=== PATIENT | female | born 1965 | race Caucasian/White ===

== ENCOUNTER 2023-12-08 21:00 | Inpatient (IN) | payer OTHER, SELFPAY ==
[2023-12-08] VITALS (10 sets, daily range): BP systolic 105–146; BP diastolic 66–97; BMI 28.8; BMI 28.0
[2023-12-08 15:21] LABS: % Basophils 0.5 % (0-2); % Eosinophils 3.5 % (0-6); % Immature Granulocytes 0.3 % (0-0.5); % Lymphocytes 5.9 % (20.5-51.1); % Monocytes 9.7 % (1.7-9.3); % Neutrophils 80.1 % (42.2-75.2); Absolute Eosinophils 0.3 10^3/uL (0-0.7); Absolute Lymphocytes 0.4 10^3/uL (1.2-3.4); Absolute Monocytes 0.7 10^3/uL (0.1-0.6); Absolute Neutrophils 5.9 10^3/uL (1.4-6.5); Hematocrit 41.8 % (37.0-47.0); Hemoglobin 14.5 g/dL (12.0-16.0); Mean Corp Hgb Conc. 34.7 g/dL (33.0-37.0); Mean Corpuscular Hgb 33.3 pg (27.0-31.0); Mean Corpuscular Volume 95.9 fL (81.0-99.0); Mean Platelet Volume 11.8 fL (7.4-10.4); Nucleated Red Blood Cells % 0 %; Platelet Count 110 10^3/uL (130-400); Red Blood Cell Count 4.36 10^6/uL (4.20-5.40); Red Cell Dist. Width 12.3 % (11.5-14.5); White Blood Cell Count 7.4 10^3/uL (4.8-10.8)
[2023-12-08 15:26] LABS: ALT (SGPT) 55 U/L (0-35); AST (SGOT) 48 U/L (14-36); Albumin 4.7 g/dl (3.5-5.0); Alkaline Phosphatase 90 U/L (38-126); Blood Urea Nitrogen 7 mg/dl (7-17); COVID-19 Antigen Negative (Negative); Calcium 9.6 mg/dl (8.4-10.2); Carbon Dioxide 24 mmol/L (22-30); Chloride 106 mmol/L (98-107); Glucose 109 mg/dl (70-99); Potassium 4.1 mmol/L (3.5-5.1); Sodium 138 mmol/L (135-145); Total Bilirubin 0.7 mg/dl (0.2-1.3); eGFR > 60.00
--- NOTE | 2023-12-08 15:34 | ED.GENMED ---
History of Present Illness
General
Chief Complaint: Breathing Problem
Time Seen by Provider: 12/08/23 15:26
Travel History
Have you had any contact with someone who has COVID-19?: No
Do you have any symptoms of coronavirus? Fever > 100 degrees, chills, cough, shortness of breath, sore throat, loss of taste or smell, muscle aches, or headache?: Yes
Symptoms:: SOB, cough
History of Present Illness
History of Present Illness:
58-year-old female with history of asthma presents to the emergency department for evaluation of shortness of breath for the past 3 days. Notes that she awoke with nasal congestion and dry cough, developed progressively worsening chest tightness
and shortness of breath over the past several days. Her nebulizers and MDI are not helping. No ill contacts at home. Denies fevers or chills.
Past History
Past History
ED Past Medical History: Asthma
ED Past Surgical History: None
Social History
Tobacco: Non-smoker
Alcohol: Occasional
Drug: None
Personal:
Living: with family
Employment: Employed
Family History
Family History: Other (Noncontributory)
Review of Systems
Review of Systems
Allergies reviewed?: Yes
All Other Systems: ROS reviewed and negative except as documented in HPI and ROS
Phy Exam
Physical Exam
Physical Exam:
GEN: Well appearing, NAD, WDWN
Eyes: PERRLA, EOMs intact, no scleral icterus
HENT: NCAT, oral mucosa moist
Lungs: Tachypneic with accessory muscle use, global expiratory wheezing and prolonged expiratory phase, good air exchange
Cardiac: Tachycardic, regular, no murmurs
Neuro: AO x 3
MSK: No gross deformity or ecchymosis. No edema. No digital clubbing
Skin: No rashes, petechiae. Normal color, no pallor or jaundice.
Psych: Calm, cooperative, proper hygiene
Scores
Heart Failure Risk
Heart Failure Risk Score: Not Applicable
Course
Orders/Labs/Results
Orders:
Orders
12/08/23 14:58
Electrocardiogram (*1) Urgent
Reason for Study: Other
Other Reason for Exam: Respiratory Distress
EKG- Treatment ONCE
12/08/23 15:04
COVID-19 Antigen Urgent
Source: Nasal Swab
Complete Blood Count/With Diff Urgent
Comprehensive Metabolic Panel Urgent
Hepatitis C Antibody Urgent
Comment: ADD ON
Troponin I Urgent
Influenza A+B Rapid Molecular Urgent
CARI Source: Nasal Swab
Specimen Description:
12/08/23 15:34
Albuterol Sulfate [Ventolin Nebules] 10 mg INH R NOW STA
Ipratropium Nebs [Atrovent Nebules] 1 mg INH R NOW STA
Magnesium Sulfate 2 Gram/50 ml [Magnesium Sulfate] 2 gram in 50 ml IV NOW
MethylPREDNISolone PF [Solu-Medrol Pf] 60 mg IV NOW STA
12/08/23 15:36
CR Chest Portable - 1 View Urgent
Comment:
Reason For Exam: SOB
Reason Study Needs to be Portable: Other
12/08/23 17:10
CT Chest Pe Study Urgent
Comment:
Reason For Exam: SOB/hypoxia
12/08/23 20:08
Ipratropium/Albuterol Sulfate [Duoneb] 3 ml INH R NOW STA
12/08/23 20:22
Admit/Transfer Patient As Directed
Co-Sign Provider:
Level of Care: Inpatient admission
Assign to:: Telemetry
Physician / Group: [email or web address]
Diagnosis: acute asthma flare - moderatly severe , hypoxic RI
Reason for Telemetry: Other
Other Reason for Telemetry: hypoxic RI
Date to Stop Telemetry: 12/10/23
Time to Stop Telemetry: 11:00
Reason for Hospitalization: acute asthma flare - moderatly severe , hypoxic RI
Expected length of stay greater than two midnights?: Yes
ELOS- Estimated Length of Stay in days: 3
I certify the patient meets the requirements for IP care: Yes
12/08/23 20:24
Code Status As Directed
Resuscitation Status: Full Code
12/08/23 21:18
Guaifenesin [Mucinex] 600 mg PO BIDPRN PRN
Ipratropium/Albuterol Sulfate [Duoneb] 3 ml INH R Q4HPRN PRN
12/08/23 21:18
Activity As Directed
Activity Level: As Tolerated
Intake/ Output As Directed
Frequency: Per unit guidelines
Vital Signs As Directed
Frequency: Per unit guidelines
Copd Education [RESP] Routine
O2 Therapy [RESP] Routine
Titrate/Wean O2 to maintain O2 sat greater than (%): 94
Special Instructions: adjust, if necessary, to avoid hyperoxia in CO2 retainers.
Use High Flow O2 if necessary
DX Deep Vein Thrombosis Video Routine
12/08/23 22:00
Dexamethasone Sod Phosphate [Decadron] 4 mg IV Q6H
12/09/23 Breakfast
Regular
At Your Request: Full Participation
Basic Metabolic Panel IN AM
Complete Blood Count/With Diff IN AM
12/09/23 08:00
Ipratropium/Albuterol Sulfate [Duoneb] 3 ml INH R QID
12/09/23 18:00
Enoxaparin Sodium [Lovenox] 40 mg SC QPM
12/10/23 11:00
DC Protocol for Telemetry ONCE
Abnormal Lab Results
12/08/23
15:04
MCH 33.3 H pg
(27.0-31.0)
Plt Count 110 L 10^3/uL
(130-400)
MPV 11.8 H fL
(7.4-10.4)
Absolute Lymphs (auto) 0.4 L 10^3/uL
(1.2-3.4)
Absolute Monos (auto) 0.7 H 10^3/uL
(0.1-0.6)
Neutrophils % 80.1 H %
(42.2-75.2)
Lymphocytes % 5.9 L %
(20.5-51.1)
Monocytes % 9.7 H %
(1.7-9.3)
Glucose 109 H mg/dl
(70-99)
AST 48 H U/L
(14-36)
ALT 55 H U/L
(0-35)
12/08/23 15:04
12/08/23 15:04
Vital Signs
Initial and Last Documented VS:
Initial Vital Signs
Temp Pulse Resp BP Pulse Ox
99.7 F 108 22 146/92 91
12/08/23 14:54 12/08/23 14:54 12/08/23 14:54 12/08/23 14:54 12/08/23 14:54
Last Documented Vital Signs
Temp Pulse Resp BP Pulse Ox
97.8 F 101 22 143/88 94
12/08/23 21:29 12/08/23 21:29 12/08/23 21:29 12/08/23 21:29 12/08/23 21:29
MDM/Problems Addressed
MDM/Problems Addressed:
58-year-old female presents with shortness of breath and asthma exacerbation symptoms. She is markedly hypoxic on room air which seems to be incongruent with her degree of wheezing on exam. She did improve symptomatically to some degree after
hour-long neb treatment however required increasing oxygen demand up to 10 L mid flow. Given that her lung sounds are not prominently abnormal she was sent for a PE study which was fortunately unremarkable for pulmonary embolism. IV steroids and
IV magnesium were also given. Will be admitted to the hospitalist service for further management
*Critical Care Note
Total Time (30-74mins, 75-104mins- exclusive of procedures): 45 minutes
comment:
Critical care time: 45 minutes
Critical care time was exclusive of: Separately billable procedures, treating other patients, and teaching time
Critical care was necessary to treat or prevent imminent or life-threatening deterioration of the following conditions: Respiratory failure with hypoxia
Critical care time spent personally by me on the following activities:
[x] Review of old charts
[x] Obtaining history from patient or surrogate
[x] Ordering and review of the laboratory studies
[x] Ordering and review of radiographic studies
[x] Ordering and performing treatments and interventions
[x] Patient patient's response to treatment
[x] Development of treatment plan with patient or surrogate
ED Attending Note
-
Portions of this chart may have been created with voice recognition software.� Occasional wrong word or��sound alike� substitutions may have occurred due to the inherent limitations of voice recognition software.
Discharge Plan
Departure
Patient Disposition: Admit
Date of Disposition: 12/08/23
Time of Disposition: 20:08
Admit to: Med/Surg
Presentation/result/management discussed w/ accepting MD/DO: Hospitalist
Discharge Problem:
Acute asthma exacerbation
Interventions
Interventions:
*Risk Screen - Suicide Last Done: 12/08/23 21:25
*General Assessment Last Done: 12/08/23 14:54
*Neglect/Abuse Screening Last Done: 12/08/23 14:54
ED- Fall Risk Assessment Last Done: 12/08/23 15:24
*Nursing Disposition Last Done: 12/08/23 21:11
ED- Cardiac Assessment Last Done: 12/08/23 15:24
ED- Pulmonary Assessment Last Done: 12/08/23 15:24
Discharge Date and Time
Discharge Date/Time: 12/08/23 21:11
[2023-12-08 15:38] LABS: Troponin I < 0.012 ng/ml
[2023-12-08] MEDS: VENTOLIN NEBULES 10 MG INH (15:42)
[2023-12-08] MEDS: ATROVENT NEBULES 1 MG INH (15:42)
[2023-12-08] MEDS: MAGNESIUM SULFATE 50 IV (15:48)
[2023-12-08] MEDS: SOLU-MEDROL PF 60 MG IV (15:49)
[2023-12-08] MEDS: DUONEB 3 ML INH ×2 (20:12→22:27)
--- NOTE | 2023-12-08 20:19 | HPS.HSE ---
Family Physician
-
Family Physician: Monica Castañeda
Chief Complaint
-
SoB
History of Present Illness
58F HX asthma evaluation for shortness of breath for the past 3 days.
She awoke with nasal congestion and dry cough, developed progressively worsening chest tightness and shortness of breath over the past several days. Her nebulizers and MDI are not helping. No ill contacts at home.
Denies fevers or chills.
Medical History
Past Medical History
Past Medical History: Reports Asthma
Past Surgical History: Reports None
Social History
Tobacco: Non-smoker
Alcohol: Occasional
Personal:
Living: With Family
Family History
Family History: Not pertinent
Allergies / Home Medications
Allergies reflects when Allergies were last updated in [facility].
Home Medications with original date entered in [facility]
Allergy/Medication List:
Allergies
Allergy/AdvReac Type Severity Reaction Status Date / Time
Sulfa (Sulfonamide Allergy Unknown Rash Verified 12/08/23 14:54
Antibiotics)
Home Medications
albuterol sulfate 1.25 mg/3 mL solution for nebulization 1.25 mg inhalation R Q4HPRN PRN sob/wheezing 10/23/22
albuterol sulfate 90 mcg/actuation aerosol inhaler 2 puff inhalation R Q4HPRN PRN sob/wheezing 10/23/22
guaifenesin 600 mg tablet, extended release 12 hr (Mucinex) 600 mg PO BIDPRN PRN cough 12/08/23
Review of Systems
-
Constitutional: Reports No Symptoms
EENT: Reports No Symptoms
Respiratory: Reports See HPI
Cardiac: Reports No Symptoms
Abdomen/GI: Reports No Symptoms
: Reports No Symptoms
Musculoskeletal: Reports No Symptoms
Skin: Reports No Symptoms
Neurological: Reports No Symptoms
Endocrine: Reports No Symptoms
Hematologic/Lymphatic: Reports No Symptoms
Psych: Reports No Symptoms
Physical Exam
Vital Signs
Vital Signs
Temp Pulse Resp BP Pulse Ox
99.7 F 103 20 108/97 95
12/08/23 14:54 12/08/23 20:00 12/08/23 20:00 12/08/23 20:00 12/08/23 20:00
Physical Exam
General: Other (see below )
Laboratory Results
-
12/08/23 15:04
12/08/23 15:04
Laboratory Results
Total Bilirubin 0.7 mg/dl (0.2-1.3) 12/08/23 15:04
AST 48 U/L (14-36) H 12/08/23 15:04
ALT 55 U/L (0-35) H 12/08/23 15:04
Alkaline Phosphatase 90 U/L (38-126) 12/08/23 15:04
Troponin I < 0.012 ng/ml 12/08/23 15:04
Data Reviewed
-
Diagnostic Radiology: Report Reviewed by me
CT Scan: Report Reviewed by me
Medical Tests (Nuc Med, Echo, EKG etc): Report Reviewed by me
Lab Data: Labs Reviewed by me
Old Records: Reviewed
Impression/Plan
-
Reviewed VS: Afebrile, tachypneic mid 20s, POx 87 on RA [address] 115--> 95 , Realtive hypotension
PE
Gen: not toxic looking, NAD
HEENT: anicteric , no pallor
Neck: supple
Lungs: Tachypneic with accessory muscle use, b/l diffise expiratory wheezing and prolonged expiratory phase
symmetric AE
Cor: ST, RRR S1 S2
Abdomen: benign exam
MOTOR EXPERT: AAO3 NFND
MS: no edema
Psych: AAO3
Data
nl CBC
nl Eosinophils
nl CMP
NEG TPNI
NEG Covid NEG Flu
EKG : ST
CXR: No radiographic evidence for acute cardiopulmonary disease
CTC Chest
- no CT angiographic evidence for pulmonary embolism.
- Diffuse bronchial wall thickening, which is greatest within the lower lobes bilaterally, and could be related to reactive airway disease and/or bronchitis.
- Band of postobstructive atelectasis within the anterior aspect of the left lower lobe of the lung.
- Ground glass opacity within the left upper lobe, which is likely groundglass pneumonitis.
- Consider follow-up radiography and/or CT to assess for interval improvement in these findings.
- Fatty infiltration of the liver.
Last hospitalist admission: 10/23/22- 10/24/22
Primary diagnoses:
Hemoptysis
Right upper lobe mass with mediastinal lymphadenopathy
Secondary diagnoses:
Asthma
Atrophic Kidney
ASSESSMENT & PLAN
Acute asthma flare with bronchitic element
Asso. acute hypoxic RI being supported on MFO2
Suspect viral
NEG CTA for PE
- IV Decadron 4mg q6h
- DuoNebs qid and PRN
- Observing off ABx
- cont. MFO2 support
- Pul consult
DVT Px: LMWH
Code: Full code
IP TLM
[2023-12-08] MEDS: DECADRON 4 MG IV (22:03)
[2023-12-08 22:53] LABS: Hepatitis C Antibody Negative (Negative)
[2023-12-09] VITALS (7 sets, daily range): BP systolic 113–135; BP diastolic 70–87
[2023-12-09] MEDS: DUONEB 3 ML INH ×3 (02:58→11:33)
[2023-12-09] MEDS: DECADRON 4 MG IV ×3 (03:28→20:06)
[2023-12-09] MEDS: TYLENOL 650 MG PO (03:28)
[2023-12-09 08:16] LABS: % Basophils 0.3 % (0-2); % Immature Granulocytes 0.5 % (0-0.5); % Lymphocytes 4.6 % (20.5-51.1); % Monocytes 5.1 % (1.7-9.3); % Neutrophils 89.5 % (42.2-75.2); Absolute Lymphocytes 0.3 10^3/uL (1.2-3.4); Absolute Monocytes 0.4 10^3/uL (0.1-0.6); Absolute Neutrophils 6.6 10^3/uL (1.4-6.5); Hemoglobin 13.8 g/dL (12.0-16.0); Mean Corp Hgb Conc. 34.5 g/dL (33.0-37.0); Mean Corpuscular Volume 95.7 fL (81.0-99.0); Nucleated Red Blood Cells % 0 %; Platelet Count 108 10^3/uL (130-400); Red Blood Cell Count 4.18 10^6/uL (4.20-5.40); Red Cell Dist. Width 12.3 % (11.5-14.5); White Blood Cell Count 7.4 10^3/uL (4.8-10.8)
[2023-12-09 08:50] LABS: Blood Urea Nitrogen 15 mg/dl (7-17); Calcium 9.5 mg/dl (8.4-10.2); Carbon Dioxide 21 mmol/L (22-30); Chloride 108 mmol/L (98-107); Estimated Creatinine Clearance 82 ml/min; Glucose 137 mg/dl (70-99); Potassium 4.3 mmol/L (3.5-5.1); Sodium 139 mmol/L (135-145); eGFR > 60.00
--- NOTE | 2023-12-09 09:20 | W.PN.HOSP.TC ---
Today's Communication/Plan
-
Continue current care
Assessment / Plan
Assessment / Plan
Gen-AAOx3, NAD
HEENT-NC, AT, anicteric, clear oral mm
Neck-supple
CV-reg, no M, +S1/S2
Lungs-bilateral expiratory wheezing
Abd-soft, NT, ND
Ext-no edema
Musculoskeletal-no cyanosis, clubbing
Skin-warm and dry
Neuro-grossly non-focal
Psych-calm, cooperative
Acute hypoxic respiratory failure -due to acute asthma exacerbation, acute bronchitis. Currently on 8 L nasal cannula oxygen, wean down as able.
Admission CT chest negative for pulmonary embolism. Does show findings of diffuse bronchial wall thickening. Postobstructive atelectasis. Groundglass opacity in the left upper lobe. Admission chest x-ray clear.
Acute asthma exacerbation -background moderate persistent asthma. Continue inhalers, steroids. Add Mucinex, Acapella. Pulmonary consulted. She is followed by Dr. Sherwood. Absolute eosinophil count 0.3.
Thrombocytopenia -unknown acuity or etiology. Monitor for now.
Elevated transaminases -unclear etiology. Monitor for now.
Full code
Anticipated Discharge: > 48 hours
Subjective/Interval History
-
Date of Service: December 09, 2023
Patient seen and examined. Feels somewhat better compared to yesterday but still with coughing and wheezing. Orthopnea.
Objective Data
-
Labs:
Laboratory Results
12/09/23
07:32
WBC 7.4
Hgb 13.8
Hct 40.0
Plt Count 108 L
Sodium 139
Potassium 4.3
Chloride 108 H
Carbon Dioxide 21 L
BUN 15
Creatinine 0.7
Glucose 137 H
Calcium 9.5
Vital Signs:
Vital Signs
Temp Pulse Resp BP Pulse Ox
97.5 F 92 18 121/81 93
12/09/23 07:00 12/09/23 09:12 12/09/23 09:12 12/09/23 07:00 12/09/23 09:12
I&O
12/08/23 12/09/23 12/10/23
06:59 06:59 06:59
Intake Total 240 / 240
Balance 240 / 240
Review of Systems
-
History Source: Patient
All other systems: Reviewed and negative
[2023-12-09] MEDS: MUCINEX 600 MG PO ×2 (11:00→20:06)
--- NOTE | 2023-12-09 12:36 | CON.PUL ---
Consultation
Consultation Request
Date/Time Consultation Requested: 12-09-23
Date/Time Consultation Performed: 12-09-23
Requesting Provider: Hospitalist
Performing Provider: Dr Smalls
Reason for Consultation: dyspnea
Medical History
-
Chief Complaint: dyspnea
History of Present Illness:
Ms Alfreda Lopez is a 58/W adm 12-08 with 4 d h/p sore throat, followed by worsening productive cough (green sputum), dyspnea and wheezing.
Denies sick contacts. Uptodate on vaccinations except COVID for about 1 y
H/o asthma on breztri and alb HFA prn with good compliance, used to follow [facility] after Oct 2022 adm for RUL nodule and hemoptysis
Nonsmoker but h/o 2nd hand smoking
Past Medical History
Past Medical History: Other (see A&P for PMH/PSH)
Social History
Tobacco: Other (h/o 2nd hand smoking through mom and first )
Alcohol: Occasional
Drug: None
Personal:
Living: With Family
Employment: Employed
Family History
Family History: Cancer (M: dx lung cancer at age 72, heavy smoker, age 78. D: with kidney and bladder cancer)
Allergies / Home Medications
Allergies
Allergy/AdvReac Type Severity Reaction Status Date / Time
Sulfa (Sulfonamide Allergy Unknown Rash Verified 12/08/23 14:54
Antibiotics)
montelukast [From Singulair] Allergy Itching Verified 12/08/23 21:24
Home Medications
Medication Instructions Recorded Confirmed Last Taken Type
albuterol sulfate 1.25 mg/3 mL 1.25 mg inhalation R Q4HPRN PRN 10/23/22 12/08/23 12/08/23 History
solution for nebulization sob/wheezing
albuterol sulfate 90 mcg/actuation 2 puff inhalation R Q4HPRN PRN 10/23/22 12/08/23 12/08/23 History
aerosol inhaler sob/wheezing
budesonide 160 mcg-glycopyr 9 2 inh inhalation BID 12/08/23 12/08/23 Unknown History
mcg-formot 4.8 mcg/actuation HFA Lung/Breathing Issues
inhaler (Breztri Aerosphere)
guaifenesin 600 mg tablet, 600 mg PO BIDPRN PRN cough 12/08/23 12/08/23 12/08/23 History
extended release 12 hr (Mucinex)
Review of Systems
-
History Source: Patient
All other systems: Negative unless noted
Respiratory: Cough and Trouble Breathing
Musculoskeletal: Other (muscle aches)
Neuro: Weakness
Vitals / Labs / Diagnostic Testing
Vital Signs
Temp Pulse Resp BP Pulse Ox
97.9 F 101 22 124/75 96
12/09/23 11:21 12/09/23 11:36 12/09/23 11:36 12/09/23 11:21 12/09/23 11:36
Lab Data
12/09/23 07:32
12/09/23 07:32
Microbiology
12/08/23 15:04 Nasal Swab Influenza Types A & B (JEFFREY) - Final
Negative for Influenza A & B, NAAT
Negative results must be combined with clinical observations
and patient history.
Nucleic Acid Amplification test (NAAT)performed on the
[employer] platform.
Diagnostic Testing:
Physical Exam
-
HEENT: Normocephalic and Moist Mucous Membranes
Cardiovascular: Regular Rhythm, Murmur (n), Peripheral Edema (n), Calf Tenderness (n) and JVD
Respiratory: Wheeze and Rhonchi
GI: Non Distended and Non Tender
Neurology: Awake, AO x 3 and No Motor Deficits
Skin: Dry
General: Respiratory Distress (mild)
Assessment
-
Assessment:
Ms Alfreda Lopez is a 58/W adm 12-08 with 4 d h/p sore throat, followed by worsening productive cough (green sputum), dyspnea and wheezing. Denies sick contacts. H/o asthma on breztri and alb HFA prn with good compliance, used to follow [facility] after
Oct 2022 adm for RUL nodule and hemoptysis.
Impression:
Acute hypoxemia, productive cough (green sputum), wheezing
New [place] GG infiltrates and postobstructive linear atelectasis at anterior aspect of LLL, very small GG at posterior LLL
Asthma exacerbation
Resolved RUL nodule (received atbs and CS), persistent MLAD 4R/L, 7 and 6
Mild thrombocytopenia
Trop negative
COVID/flu negative
Mild ankle edema
Conditions [employer]:
Adm DH 10-23 to :
Hemoptysis: new onset 10-23, up to 10 events of mild hemoptysis until 10 am 10-24
RUL posterior segment 2.3 x 1.4 x 1.9 cm oval-shaped solid pulmonary nodule, located along the anterior margin of the right major fissure, 61 HU in attenuation, with moderate amount of surrounding GGO
Mediastinal LAD: 4R, 4L, 7, 6
Strongly rec to follow at [facility] for robotic bronchoscopy for biopsy of RUL mass
CAP/asthma exacerbation Aug 2022, CXR 11-29 at [facility] states negative results
Given 5 d course of doxycycline and medrol dose pack
Asthma, on albuterol, advair
Mild intermittent
Dx age 29, [facility]
Followed at [facility] after Oct 2022 adm until February 2023, since then no show up
Atrophic L kidney
R upper chest 'fullness' for 1 y [employer], chest US by PCP was negative
L lumpectomy x2: first one negative, 2nd one 10 y ago, suspicious (FNA) led to lumpectomy but did not need further surgery or other treatments, negative mammogram end 2021
Cholecystectomy
Hepatic steatosis
Cervical cancer s/p local resection at age 29s
Hysterectomy 2014 for fibroids
LLNS
H/o 2nd hand smoking (mom and first )
Colonoscopy negative 2021
FH cancer: M, dx lung cancer at age 72, heavy smoker, age 78. D, with kidney and bladder cancer
Plan:
Continue O2 protocol
O2 8L, now down to 6L, POC POx 97%
Chest CTA with no PE but new multifocal [place] GG infiltrates and long linear atelectasis at anterior LLL, very small GG at posterior LLL
Acute onset of symptoms with dyspnea, productive cough and wheezing
Check sputum cx, blood cxs, UAg for Leg/Strep, PCT, MRSA screen
Initiate empiric atbs, e.g zosyn
Intermittent CXR, at some point outpatient chest CT
Noted persistent mediastinal LAD which needs close follow up
Patient reminded to resume follow up at [facility], lost follow up since after February [address] Garcia
Continue systemic CS IV: dexam 4 mg IV q8 to continue, equivalent to pred 80 mg qd
Continue symbicort (return [facility] upon d[facility]c, [facility] then will [facility])
Continue Dns qid/prn
VEST, HS, acapella
Continue guaifenesin
Mild ankle edema
Check BNP, TTE, HELADIO doppler
D/w Mrs Lopez, all questions answered
Diagnostic tests:
CXR 12-08-23: c/w 11-13 and 10-23-22: interval resolution of RUL nodule
Chest CTA 12-08-23 c/w Oct 2022: resolved RUL nodule, persistent MLAD. New GG infiltrates at [place]. New linear atelectasis at anterior LLL
--- NOTE | 2023-12-09 14:23 | CM ---
customer acquisition manager reviewed patient's chart and met with patient and spouse at bedside. Patient reports she is independent with adl's and ambulation, patient drives, patient has a nebulizer in home patient has a prescription plan and uses [facility] pharmacy.
PCP: Monica Castañeda
Plan; Home no needs when stable.
[2023-12-09 15:34] LABS: NT-proBNP 103 pg/ml
[2023-12-09 15:40] LABS: Procalcitonin < 0.05 ng/ml (0.0-0.25)
[2023-12-09] MEDS: ZOSYN 50 IV ×2 (15:52→21:15)
[2023-12-09] MEDS: VENTOLIN NEBULES 2.5 MG INH (19:38)
[2023-12-09] MEDS: SODIUM CHLORIDE 3% FOR INHALATION 1 VIAL INH (19:39)
[2023-12-10 03:15] VITALS: BP 109/71
[2023-12-10] MEDS: DECADRON 4 MG IV ×3 (04:37→19:23)
[2023-12-10] MEDS: ZOSYN 50 IV (04:38)
--- NOTE | 2023-12-10 06:11 | DOWNTIME ---
There was a [employer] In[employer] Downtime on 12/10/2023 from 0111 to 12/10/2023 at 0405. Downtime documentation of patient's care, including medication administrations, has been reconciled in the electronic record per guidelines. Refer to the
patient's paper chart under the miscellaneous tab to see printed paper medication records and downtime forms.
[2023-12-10 07:00] VITALS: BP 125/83
[2023-12-10] MEDS: MUCINEX 600 MG PO ×2 (07:19→19:27)
[2023-12-10] MEDS: VENTOLIN NEBULES 2.5 MG INH ×3 (07:48→19:38)
[2023-12-10] MEDS: SODIUM CHLORIDE 3% FOR INHALATION 1 VIAL INH ×3 (07:49→19:38)
--- NOTE | 2023-12-10 11:32 | W.PN.HOSP.TC ---
Today's Communication/Plan
-
Continue current care
Assessment / Plan
Assessment / Plan
Gen-AAOx3, NAD
HEENT-NC, AT, anicteric, clear oral mm
Neck-supple
CV-reg, no M, +S1/S2
Lungs-bilateral expiratory wheezing
Abd-soft, NT, ND
Ext-no edema
Musculoskeletal-no cyanosis, clubbing
Skin-warm and dry
Neuro-grossly non-focal
Psych-calm, cooperative
Acute hypoxic respiratory failure -due to acute asthma exacerbation, acute bronchitis. Oxygenation improving, down to 3 L nasal cannula.
Admission CT chest negative for pulmonary embolism. Does show findings of diffuse bronchial wall thickening. Postobstructive atelectasis. Groundglass opacity in the left upper lobe. Admission chest x-ray clear.
Acute asthma exacerbation -background moderate persistent asthma. Slowly improving. Continue steroids, nebs, Acapella, Mucinex. Pulmonary following.
No evidence of congestive heart failure. BNP normal. Pulmonary order echocardiogram, report pending. Lower extremity Doppler ultrasound negative.
Thrombocytopenia -unknown acuity or etiology. Monitor for now.
Elevated transaminases -unclear etiology. Monitor for now.
Full code
Anticipated Discharge: Within 24 hours
Subjective/Interval History
-
Date of Service: December 10, 2023
Patient seen and examined. States she is starting to feel better. Still with cough.
Objective Data
-
Vital Signs:
Vital Signs
Temp Pulse Resp BP Pulse Ox
98.0 F 94 18 125/83 96
12/10/23 07:00 12/10/23 07:52 12/10/23 07:52 12/10/23 07:00 12/10/23 07:52
I&O
12/09/23 12/10/23 12/11/23
06:59 06:59 06:59
Intake Total 240 / 240 900 / 900
Balance 240 / 240 /
Review of Systems
-
History Source: Patient
All other systems: Reviewed and negative
--- NOTE | 2023-12-10 14:10 | CM ---
Home no needs when stable.
Plan; Home no needs when stable.
[2023-12-10 15:00] VITALS: BP 133/74
--- NOTE | 2023-12-10 16:33 | W.PN.PUL3 ---
Today's Communication / Plan
-
O2
BD
CS
Assessment
-
Assessment:
Ms Alfreda Lopez is a 58/W adm 12-08 with 4 d h/p sore throat, followed by worsening productive cough (green sputum), dyspnea and wheezing. Denies sick contacts. H/o asthma on breztri and alb HFA prn with good compliance, used to follow [facility] after
Oct 2022 adm for RUL nodule and hemoptysis.
Impression:
Acute hypoxemia, productive cough (green sputum), wheezing
New [place] GG infiltrates and postobstructive linear atelectasis at anterior aspect of LLL, very small GG at posterior LLL
PCT negative
Asthma exacerbation
Resolved RUL nodule (received atbs and CS), persistent MLAD 4R/L, 7 and 6
Mild thrombocytopenia
Trop negative
COVID/flu negative
Mild ankle edema
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
Adm DH 10-23 to 23:
Hemoptysis: new onset 10-23, up to 10 events of mild hemoptysis until 10 am 10-24
RUL posterior segment 2.3 x 1.4 x 1.9 cm oval-shaped solid pulmonary nodule, located along the anterior margin of the right major fissure, 61 HU in attenuation, with moderate amount of surrounding GGO
Mediastinal LAD: 4R, 4L, 7, 6
Strongly rec to follow at [facility] for robotic bronchoscopy for biopsy of RUL mass
CAP/asthma exacerbation Aug 2022, CXR -29 at [facility] states negative results
Given 5 d course of doxycycline and medrol dose pack
Asthma, on albuterol, advair
Mild intermittent
Dx age 29, [facility]
Followed at [facility] after Oct 2022 adm until February 2023, since then no show up
Atrophic L kidney
R upper chest 'fullness' for 1 y REFRIGERATION INSULATOR, chest US by PCP was negative
L lumpectomy x2: first one negative, 2nd one 10 y ago, suspicious (FNA) led to lumpectomy but did not need further surgery or other treatments, negative mammogram end 2021
Cholecystectomy
Hepatic steatosis
Cervical cancer s/p local resection at age 29s
Hysterectomy 2014 for fibroids
LLNS
H/o 2nd hand smoking (mom and first )
Colonoscopy negative 2021
FH cancer: M, dx lung cancer at age 71, heavy smoker, age 77. D, with kidney and bladder cancer
Plan:
Continue O2 protocol
O2 8L, down to 6L and now to 3L, POx 96%
Chest CTA with no PE but new multifocal [place] GG infiltrates and long linear atelectasis at anterior LLL, very small GG at posterior LLL
Acute onset of symptoms with dyspnea, productive cough and wheezing
Check sputum cx ordered but not yet collected
Blood cxs so far negative
UAg for Leg/Strep not collected
PCT negative, MRSA screen negative
Initiated empiric atbs, e.g zosyn, now discontinued
Intermittent CXR, at some point outpatient chest CT
Noted persistent mediastinal LAD which needs close follow up
Patient reminded to resume follow up at [facility], lost follow up since after February [address] Garcia
Continue systemic CS IV: dexam 4 mg IV q8 to continue for now, equivalent to pred 80 mg qd
Continue symbicort (return to [facility] upon d/c, per RT family will bring banner today, then will use it instead)
Continue Dns qid/prn
VEST, HS, acapella
Continue guaifenesin
Mild ankle edema
BNP stephanie, HELADIO doppler negative
D/w Mrs Lopez, all questions answered
Diagnostic tests:
CXR 12-08-23: c/w 11-13 and 10-23-22: interval resolution of RUL nodule
Chest CTA 12-08-23 c/w Oct 2022: resolved RUL nodule, persistent MLAD. New GG infiltrates at D[place]. New linear atelectasis at anterior LLL
Subjective Data
-
Date of Service:
Date of Service: December 10, 2023
Chief Complaint: Pulmonary Follow Up
Subjective:
No major events reported
Remains afebrile and hemodyn stable
Feels resp biggs improved
Review of Systems
General: Fever (n), Sweats (n), Chills (n) and Satisfactory Appetite
HEENT: Epistaxis (n) and Dysphagia
Cardiopulmonary: Dyspnea, Cough, Wheezing and Chest Pain (n)
GI: Abdominal Pain (n), Nausea and Vomiting (n)
Neuro: Weakness
Objective Data
Data Reviewed
Vital Signs / I&O / Oxygen:
Vital Signs
Temp Pulse Resp BP Pulse Ox
98.2 F 77 18 133/74 94
12/10/23 15:00 12/10/23 15:00 12/10/23 15:00 12/10/23 15:00 12/10/23 15:00
Intake and Output
12/09/23 12/10/23 12/11/23
06:59 06:59 06:59
Intake Total 240 / 240 900 / 900
Balance 240 / 240 900 / 900
SaO2 94
Nasal Cannula flow liters per 3
minute
Physical Exam
General: Comfortable
HEENT: Normocephalic and Moist Mucous Membranes
Cardiovascular: Regular Rhythm, Murmur, Peripheral Edema (n) and Calf Tenderness
Respiratory: Wheeze, Rhonchi, Accessory Resp Muscle Use (trace) and Stridor (n)
GI: Soft, Non Distended and Non Tender
Neurology: Awake and AO x 3
Skin: Dry
Labs/Micro/Reports
Lab Data
12/09/23 07:32
12/09/23 07:32
Microbiology
12/09/23 14:56 Blood/Venous Blood Culture - Preliminary
No Growth in 24 hours- Final report to follow
12/09/23 15:59 Nose Nasal Screen MRSA (PCR) - Final
MRSA not detected - performed by PCR methodology.
12/08/23 15:04 Nasal Swab Influenza Types A & B (JEFFREY) - Final
Negative for Influenza A & B, NAAT
Negative results must be combined with clinical observations
and patient history.
Nucleic Acid Amplification test (NAAT)performed on the
[employer] platform.
[2023-12-10 23:00] VITALS: BP 121/71
[2023-12-11] MEDS: DECADRON 4 MG IV ×2 (05:00→11:32)
[2023-12-11 07:00] VITALS: BP 131/87
[2023-12-11] MEDS: SODIUM CHLORIDE 3% FOR INHALATION 1 VIAL INH ×2 (07:56→13:41)
[2023-12-11] MEDS: VENTOLIN NEBULES 2.5 MG INH ×2 (07:56→13:41)
[2023-12-11] MEDS: MUCINEX 600 MG PO (09:15)
--- NOTE | 2023-12-11 09:53 | W.PN.HOSP.TC ---
Addendum entered and electronically signed by Clarence Altamirano DO 12/11/23 13:58:
Patient is in need of oxygen on exertion due to pulse oximetry of 93% on room air at rest; 87% on room air with exertion.
Patient was placed on 2L O2 via nasal cannula with saturation of 91%. Oxygen will help to improve hypoxemia.
Patient is mobile within the home. Albuterol therapy has been discussed and is ineffective in treating hypoxemia-related symptoms.
Oxygen will improve the patient's symptoms.
Original Note:
Today's Communication/Plan
-
Pulse ox on room air with ambulation
Assessment / Plan
Assessment / Plan
Gen-AAOx3, NAD
HEENT-NC, AT, anicteric, clear oral mm
Neck-supple
CV-reg, no M, +S1/S2
Lungs-bilateral expiratory wheezing, improving
Abd-soft, NT, ND
Ext-no edema
Musculoskeletal-no cyanosis, clubbing
Skin-warm and dry
Neuro-grossly non-focal
Psych-calm, cooperative
Acute hypoxic respiratory failure -due to acute asthma exacerbation, acute bronchitis. Oxygenation improving, down to 2 L nasal cannula.
Admission CT chest negative for pulmonary embolism. Does show findings of diffuse bronchial wall thickening. Postobstructive atelectasis. Groundglass opacity in the left upper lobe. Admission chest x-ray clear.
Acute asthma exacerbation -background moderate persistent asthma. Slowly improving. Continue steroids, nebs, Acapella, Mucinex. Pulmonary following.
No evidence of congestive heart failure. BNP normal. Echocardiogram normal. Lower extremity Doppler ultrasound negative.
Thrombocytopenia -unknown acuity or etiology. Monitor for now.
Elevated transaminases -unclear etiology. Monitor for now.
Full code
Dispo -check ambulatory pulse ox on room air. Potential discharge later today if stable. Outpatient follow-up with PCP and pulmonary. She is known to Dr. Sherwood.
Anticipated Discharge: Today
Subjective/Interval History
-
Date of Service: December 11, 2023
Patient seen and examined. Doing fine. No complaints currently.
Objective Data
-
Vital Signs:
Vital Signs
Temp Pulse Resp BP Pulse Ox
98.5 F 88 17 131/87 92
12/11/23 07:00 12/11/23 08:00 12/11/23 08:00 12/11/23 07:00 12/11/23 08:00
I&O
12/10/23 12/11/23 12/12/23
06:59 06:59 06:59
Intake Total 900 / 900 1440 / 1440
Balance 900 / 900 1440 / 1440
Review of Systems
-
History Source: Patient
All other systems: Reviewed and negative
--- NOTE | 2023-12-11 10:34 | CM ---
Addendum entered by Jennifer Sargent 12/11/23 14:29:
licensed club manager received a consult for home oxygen set up, case therapist met with patient and review DME options and referral sent to [employer], script faxed along with physician notes and testing.
Plan; Home with oxygen at 2 liters from [facility] [employer].
Original Note:
Home with spouse no needs when stable.
Plan; Home no needs when stable.
--- NOTE | 2023-12-11 12:41 | W.PN.PUL3 ---
Today's Communication / Plan
-
Home O2
Prednisone taper, slow
Follow [facility] in 1-2 wks p d/c (Dr Garcia)
Low threshold to return to ER if resp symptoms worsen or other significant concerns
Assessment
-
Assessment:
Ms Alfreda Lopez is a 58/W adm 12-08 with 4 d h/p sore throat, followed by worsening productive cough (green sputum), dyspnea and wheezing. Denies sick contacts. H/o asthma on breztri and alb HFA prn with good compliance, used to follow [facility] after
Oct 2022 adm for RUL nodule and hemoptysis.
Impression:
Acute hypoxemia, productive cough (green sputum), wheezing
New small [place] GG infiltrates and long linear atelectasis at anterior aspect of LLL, very small GG at posterior LLL
PCT negative, likely viral vs inflammatory infiltrate
Asthma exacerbation
Resolved RUL nodule (received atbs and CS), persistent MLAD 4R/L, 7 and 6
Mild thrombocytopenia
Trop negative
COVID/flu negative
Mild ankle edema
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
Adm DH 10-23 to 23:
Hemoptysis: new onset 10-23, up to 10 events of mild hemoptysis until 10 am 10-24
RUL posterior segment 2.3 x 1.4 x 1.9 cm oval-shaped solid pulmonary nodule, located along the anterior margin of the right major fissure, 61 HU in attenuation, with moderate amount of surrounding GGO
Mediastinal LAD: 4R, 4L, 7, 6
Strongly rec to follow at [facility] for robotic bronchoscopy for biopsy of RUL mass
CAP/asthma exacerbation Aug 2022, CXR 11-29 at [facility] states negative results
Given 5 d course of doxycycline and medrol dose pack
Asthma, on albuterol, advair
Mild intermittent
Dx age 29, [facility]
Followed at [facility] after Oct 2022 adm until February 2023, since then no show up
Atrophic L kidney
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
L lumpectomy x2: first one negative, 2nd one 10 y ago, suspicious (FNA) led to lumpectomy but did not need further surgery or other treatments, negative mammogram end 2021
Cholecystectomy
Hepatic steatosis
Cervical cancer s/p local resection at age 29s
Hysterectomy 2014 for fibroids
LLNS
H/o 2nd hand smoking (mom and first )
Colonoscopy negative 2021
FH cancer: M, dx lung cancer at age 71, heavy smoker, age 77. D, with kidney and bladder cancer
Plan:
Continue O2 protocol
O2 8L, down to 6L and now to 2L, POx 92%, currently on RA POx 93%
POx RA at rest 93%, down to 87% on RA with 250 ft walking distance, improved to 91% on 2L and 50 ft walking distance
Will need exertional O2 as above
Chest CTA with no PE but new small multifocal [place] GG infiltrates and long linear atelectasis at anterior LLL, very small pseudo-GGO at posterior LLL
Acute onset of symptoms with dyspnea, productive cough and wheezing
Check sputum cx ordered but not collected
Blood cxs so far negative
PCT negative, MRSA screen negative
Remains afebrile and hemodyn stable
Initiated empiric atbs, e.g zosyn, discontinued in less than 24 hrs, however, respiratory improvement continued, suspected infiltrates are viral or inflammatory in nature
Outpatient chest CT for follow up of above findings and noted persistent mediastinal LAD which needs close follow up
Patient reminded to resume follow up at [facility], lost follow up since after February [address] Garcia
Continue systemic CS IV
Startedon dexam 4 mg IV q8, equivalent to pred 80 mg qd
Transition to prednisone 40mg with taper by 10 mg every 1 wk to off
Should follow [facility] in 1-2 wks p d/c with repeat CXR PA/lat
Continue symbicort (return to breztri upon d/c)
Continue Dns qid/prn, return to albuterol HFA prn upon d/c
VEST, HS, d/c upon d/c
Continue acapella, take it home and continue
Discontinue guaifenesin upon d/c
Mild ankle edema
BNP normal, HELADIO doppler negative
D/w Mrs Lopez, all questions answered
Disposition: can be d/c home today, however rec low threshold to return if resp symptoms worsen or other significant concerns
TT Dr Altamirano
Diagnostic tests:
CXR 12-08-23: c/w 11-13 and 10-23-22: interval resolution of RUL nodule
Chest CTA 12-08-23 c/w Oct 2022: resolved RUL nodule, persistent MLAD. New GG infiltrates at [place]. New linear atelectasis at anterior LLL
Subjective Data
-
Date of Service:
Date of Service: December 11, 2023
Chief Complaint: Pulmonary Follow Up
Subjective:
No major events reported
States resp improvement: dyspnea, cough, expectoration has improved 'by 80%'
Exertional hypoxemia noted, responded to O2
Wants to go home, good family support, known to Dr Garcia
Review of Systems
General: Fever (n), Sweats (n), Chills (n) and Satisfactory Appetite
HEENT: Epistaxis (n) and Dysphagia (n)
Cardiopulmonary: Dyspnea (n at rest on O2), Dyspnea on Exertion, Cough (improved), Sputum Production (improved), Wheezing (improved), Chest Pain (n), Edema (n) and Hemoptysis (n)
GI: Abdominal Pain (n), Nausea (n) and Vomiting (n)
Neuro: Weakness
Genitourinary: Hematuria (n)
Objective Data
Data Reviewed
Vital Signs / I&O / Oxygen:
Vital Signs
Temp Pulse Resp BP Pulse Ox
98.5 F 88 17 131/87 92
12/11/23 07:00 12/11/23 08:00 12/11/23 08:00 12/11/23 07:00 12/11/23 08:00
Intake and Output
12/10/23 12/11/23 12/12/23
06:59 06:59 06:59
Intake Total 900 / 900 1440 / 1440
Balance 900 / 900 1440 / 1440
SaO2 92
Nasal Cannula flow liters per 2
minute
Physical Exam
General: Comfortable (at rest on O2)
HEENT: Normocephalic and Moist Mucous Membranes
Cardiovascular: Regular Rhythm, Murmur, JVD (n), Peripheral Edema (n) and Calf Tenderness
Respiratory: Wheeze, Rhonchi, Accessory Resp Muscle Use (trace) and Stridor (n)
GI: Soft, Non Distended, Non Tender and Normal Bowel Sounds
Neurology: Awake, AO x 3 and No Motor Deficits
Skin: Dry
Labs/Micro/Reports
Lab Data
12/09/23 07:32
12/09/23 07:32
Microbiology
12/09/23 14:56 Blood/Venous Blood Culture - Preliminary
No Growth in 24 hours- Final report to follow
12/09/23 15:59 Nose Nasal Screen MRSA (PCR) - Final
MRSA not detected - performed by PCR methodology.
12/08/23 15:04 Nasal Swab Influenza Types A & B ([facility]FFREY) - Final
Negative for Influenza A & B, NAAT
Negative results must be combined with clinical observations
and patient history.
Nucleic Acid Amplification test (NAAT)performed on the
[employer] platform.
--- NOTE | 2023-12-11 13:59 | W.DS.TRANS ---
DC Summary - Cardiology Technician
-
Discharge Instructions:
Discharge Diagnosis/Procedures Acute asthma exacerbation
Diet Regular
Activity As tolerated
Driving Restrictions As prior to admission
Bathing Restrictions None
Instructions:
Stand-Alone Forms:
Changes to Home Medications: No
Discharge Medications:
DC Medications w/original date entered in [employer]
albuterol sulfate 1.25 mg/3 mL solution for nebulization 1.25 mg inhalation R Q4HPRN PRN sob/wheezing 10/23/22
budesonide 160 mcg-glycopyr 9 mcg-formot 4.8 mcg/actuation HFA inhaler (Breztri Aerosphere) 2 inh inhalation BID Lung/Breathing Issues 12/08/23
guaifenesin 600 mg tablet, extended release 12 hr (Mucinex) 600 mg PO BIDPRN PRN cough 12/08/23
albuterol sulfate 90 mcg/actuation aerosol inhaler 2 puff inhalation R Q4HPRN PRN sob/wheezing #1 g 12/11/23
prednisone 10 mg tablet 10 mg PO DIRECTED #45 tabs 12/11/23
Home Medication Changes
Pending Results: No
--- NOTE | 2023-12-11 16:26 | PTCARENOTE ---
Pt DC'd to home with O2. DC instructions given and Pt verbalized understanding. O2 teaching complete.
== END 2023-12-11 15:50 | disposition home or self-care (01) | DRG 202 ==
LOC: 4 WEST ACU 21:00
PROVIDERS: Emergency Medicine; ADMITTING PHYSICIAN Internal Medicine; ATTENDING PHYSICIAN Hospitalist; EMERGENCY PHYSICIAN Emergency Medicine; FAMILY PHYSICIAN Nurse Practitioner Adult Health; OTHER PHYSICIAN Internal Medicine Pulmonary Disease
DX: J45.41 Moderate persistent asthma with (acute) exacerbation (principal); J96.01 Acute respiratory failure with hypoxia; J98.11 Atelectasis; Z11.52 Encounter for screening for COVID-19; R09.02 Hypoxemia; N26.1 Atrophy of kidney (terminal); D69.6 Thrombocytopenia, unspecified
CPT/HCPCS: 71045; 71275; 80048; 80053; 83880; 84145; 84484; 85025; 86803; 87040; 87502; 87641; 87811; 93005; 93306; 93970; 94640; 94669; 96374; 96375; 99291; Q9967

== ENCOUNTER → 2025-03-02 15:49 | Outpatient (REF) | payer OTHER, SELFPAY | LOC: HWRAD 15:49 | PROVIDERS: ATTENDING PHYSICIAN Internal Medicine | DX: R05.9 Cough, unspecified (principal) | CPT/HCPCS: 71046 ==